=== PATIENT | female | born 1960 | race African-American/Black ===

== ENCOUNTER 2022-09-07 23:12 | Emergency (ER) | payer BC ==
[~2022-09-07] VITALS: Ht 165.1 cm; Wt 137.0 kg
[2022-09-08 02:30] VITALS: BP 150/79
[2022-09-08] MEDS ORDERED: ERYT-141 MT (02:31)
[2022-09-08] MEDS ORDERED: EPIN0.3P3 IM (02:31)
== END 2022-09-08 02:40 | disposition home or self-care (01) ==
LOC: ER 23:12
DX: T78.40XA Allergy, unspecified, initial encounter (principal); X58.XXXA Exposure to other specified factors, initial encounter; L03.115 Cellulitis of right lower limb; J45.909 Unspecified asthma, uncomplicated
CPT/HCPCS: 99283